=== PATIENT | female | born 1990 | race Caucasian/White ===

== ENCOUNTER 2025-04-26 12:27 | Emergency (ER) | payer OTHER ==
[~2025-04-26] VITALS: Ht 152.4 cm; Wt 56.0 kg
[2025-04-26 12:35] VITALS: O2SAT 98
[2025-04-26] MEDS: IBUPROFEN 600MG TABLET PO STA (13:39)
[2025-04-26 14:32] LABS: HEMATOCRIT. 28.4 % (36.0-48.0); HEMOGLOBIN. 8.7 g/dL (12.0-16.0); MEAN CORPUSCULAR HEMOGLOBIN 19.6 pg (28.0-32.0); MEAN CORPUSCULAR HGB CONC 30.5 g/dL (31.0-37.0); MEAN CORPUSCULAR VOLUME 64.2 fL (81.0-99.0); MEAN PLATELET VOLUME 8.3 fl (7.4-10.4); PLATELET 539 x1000/uL (130-400); RED BLOOD CELL COUNT 4.42 mill/uL (4.2-5.4); RED CELL DISTRIBUTION WIDTH 20.1 % (11.6-14.6); WHITE BLOOD COUNT 6.8 x1000/uL (4.5-11.0)
[2025-04-26 14:35] LABS: DIFFERENTIAL COMMENT 1
[2025-04-26 14:38] LABS: CHLORIDE 105 mEq/L (98-107); POTASSIUM 3.5 mEq/L (3.5-5.1); SODIUM 137 mEq/L (136-145)
[2025-04-26 14:39] LABS: CALCIUM 9.2 mg/dL (8.7-10.4); CARBON DIOXIDE 26 mEq/L (21-32)
[2025-04-26 14:44] LABS: CREATININE 0.7 mg/dL (0.6-1.0); GLUCOSE 102 mg/dL (70-105); UREA NITROGEN BLOOD 8 mg/dL (9-23)
[2025-04-26 14:50] LABS: TROPONIN I HIGH SENSITIVITY < 4 ng/L (3.0-34)
[2025-04-26] MEDS ORDERED: FERR236T3 MT (14:59)
[2025-04-26 15:00] LABS: ANISOCYTOSIS 2+; HYPOCHROMASIA 2+; MICROCYTOSIS 3+; PLATELET ESTIMATE INCREASED
[2025-04-26] MEDS: HYDROCODONE/ACETAMINOPHEN 10/325MG TABLET PO ONE (15:14)
[2025-04-26 15:17] VITALS: BP 106/40; PULSE 74; RESP 16; TEMP 36.7; O2SAT 99
== END 2025-04-26 15:19 | disposition home or self-care (01) ==
LOC: ER 12:27
DX: R07.89 Other chest pain (principal); D64.9 Anemia, unspecified; Q85.01 Neurofibromatosis, type 1; I10 Essential (primary) hypertension; Z98.51 Tubal ligation status
CPT/HCPCS: 36415; 71045; 80048; 84484; 85025; 85379; 93005; 99285